=== PATIENT | male | born 1950 | race Caucasian/White ===

== ENCOUNTER → 2017-05-05 | Outpatient (CLI) | payer OTHER ==
[~2017-05-05] VITALS: Ht 170.2 cm; Wt 95.1 kg
[~2017-05-05] MED LIST: ASPIRIN325 PO; ATENOLOL 100MG100 MG PO; HYDROCODON-ACE1 EAC8 PO; PAROXETINE HCL20 MG PO; SIMVASTATIN5 MG PO; ZYRTEC10 M5 PO
--- NOTE | ~2017-05-05 | HPC ---
[facility] [address] [place] [address] PAIN MANAGEMENT CONSULTATION Name: JAILYN HOOD Room #: REG Ana Jang#: [id number] Admission: 05/05/17 Attend Phys: Colt Callejas DO Discharge: Date of : 49 Report #: [id number] THIS REPORT FOR: //name// CC: TONNY Reveles HISTORY OF PRESENT ILLNESS: The patient is a 66-year-old gentleman seen in consultation at the request of work comp for evaluation of pain, low back, buttock, and right leg. The patient has an extensive medical history, suffered a twisting, lifting injury in 2004 with acute "pop" and onset of pain, low back, right leg to foot. The patient was treated conservatively, ultimately progressing to L4, L5, S1 fusion on 12/09/2012. The patient notes that he had short-term relief following the procedure, but pain recurred. He is complaining primarily of pain at the base of his tailbone and his coccyx, describes as burning dysesthesia exacerbated with any weight on the tailbone i.e. sitting. Gets some relief lifting his torso with his arms such that his feet are off the floor. This affords only transient relief. He takes hydrocodone up to 2 a day or aspirin up to 9 a day with nominal efficacy. He notes pain is an 8-10 on a visual analog scale, not terribly opiate sensitive. He describes continuous, steady, constant, burning, aching, pulling, sharp, stabbing pain that significantly interferes with function. 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 He notes more incidentally right lumbar radicular pain and a burning dysesthesia in both feet. The patient denies any myelopathic symptoms including loss of proprioception, saddle anesthesia or bowel or bladder incontinence. The patient apparently had an MRI and a subsequent workup at [facility], most recently this past year. Again, no surgery was indicated at that time. REVIEW OF SYSTEMS: Complete review of systems was attached to the chart and gone over with the patient. He is , does not smoke or drink alcohol to excess. History of hypertension, treated with atenolol; dyslipidemia for which he takes simvastatin; chronic anxiety, currently on paroxetine and prior taken Xanax for nearly 10 years. SURGICAL HISTORY: Surgery includes the aforementioned lumbar fusion in 2012, right total hip arthroplasty in 2015 and ORIF of the right lower extremity in 1991 (1992?). The patient states he been retired since 2006. Rates his pain impact score 69/70. [address] [address] PAIN MANAGEMENT CONSULTATION Name: JAILYN HOOD Room #: REG FRITZ Jang#: [id number] Admission: 05/05/17 Attend Phys: Colt Callejas DO Discharge: Date of : 49 Report #: [id number] PHYSICAL EXAMINATION: This is a 5 feet 8 inches, 190 pounds gentleman, BMI is 32.8 kilograms per meter squared. Blood pressure is quite elevated at 197/105, pulse 74, respirations 16. He is alert and oriented to person, place and time, judged to be a reasonable historian. Pupils equal and reactive to light and accommodation. Extraocular muscles are intact. Cervical range of motion is full. Thyroid is unremarkable. Upper extremity strength is preserved. He does have poor dentition. Heart is regular and rhythmical without murmur. Lungs are clear to auscultation. Upper extremity strength again generally preserved, though resistance to triceps extension does exacerbate low back pain. The patient rises from chair using armrest, has an antalgic gait. Flexion is self-limited to 30 degrees, tender from about L4 down with exquisite tenderness over the sacrococcygeal area. Patellar and Achilles reflexes are preserved at 1/4. Lower extremity strength is symmetric at 4/5. Resistance to right hip flexion strength exacerbates low back pain. Passive rotation of the hips is limited, has pain radiating to the low back with all movement. Palpation over the low back causes "exquisite pain." Again, the patient is on low dose hydrocodone. I suggested membrane stabilizing agent, states he has been on gabapentin, though he is unsure of the dosage or time. He is not interested in medication stating "I have tried them all before." He states no medications have afforded any relief. I did convince the patient to try Lyrica, a little easier to titrate calcium channel membrane stabilizing agent. I gave him samples of both 50 and 75 mg tablets. We will gradually titrate to target dose of 125 mg. 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 I did, however, suggest that I was uncertain if a spinal cord stimulator would afford much relief for his specific pain i.e., pain at the base of the tailbone. The patient stated that he would rather be paralyzed from the waist down than have the current pain that he has. The patient seems to be suffering from fairly significant dramatic pain. It has affected his functional ability and his affect. I have taken the liberty of giving the patient samples for Lyrica to try a reasonable neuropathic agent. If, however, he fails this agent, I am of a mind that the downside of trialing a spinal cord stimulator while not insignificant, may be eclipsed by possible benefit. I did point out that my biggest concern with a spinal cord stimulator trial would be concern for infection in a gentleman with fusion hardware. Clearly infection could be catastrophic requiring explantation of the hardware. Nonetheless, infection is a very infrequent complication of spinal cord stimulator. Again, with high frequency stimulator, we may well be able to get back beltline, buttock and leg coverage. [facility] [address] [place] [address] PAIN MANAGEMENT CONSULTATION Name: SANAJAILYN Arias Room #: REG [facility] Suhail#: [id number] Admission: 05/05/17 Attend Phys: Colt Callejas DO Discharge: Date of : 49 Report #: [id number] Thank you for allowing me to participate in the patient's care. Initially I thought with the low dose opiate he is on, that he had not really been exposed to maximal medical therapy. He is describing however, neuropathic pain that typically is not well managed with opiate analgesics. He has widely eschewed escalation of this dose. We will see how he does with a therapeutic dose of neuropathic agent (Lyrica). I will keep you abreast of his progress. <ELECTRONICALLY SIGNED> By: Colt Callejas DO 05/07/17 1417 1617 1856 Colt Callejas DO /nt
[2017-05-05 13:06] VITALS: BP 197/105
== END ==
LOC: PAIN 07:06
DX: M54.5 Low back pain (principal); M79.604 Pain in right leg

== ENCOUNTER → 2017-05-26 | Outpatient (CLI) | payer OTHER ==
[~2017-05-26] VITALS: Ht 170.2 cm; Wt 94.8 kg
--- NOTE | ~2017-05-26 | HPC ---
[facility] [place] [address] PAIN MANAGEMENT CONSULTATION Name: JAILYN HOOD Room #: REG FRITZ Jang#: [id number] Admission: 05/26/17 Attend Phys: Colt Callejas DO Discharge: Date of : 49 Report #: [id number] THIS REPORT FOR: //name// CC: TONNY Callejas DATE OF SERVICE: 05/26/2017 ADDENDUM The patient appears to be an appropriate candidate for a spinal cord stimulator. I am comfortable moving forward without psychological evaluation as required by Medicare. Assuming his third alliance party payer does not require this diagnostic tool, I am happy to move forward with spinal cord stimulator in earliest possible date. I cannot discern any obvious psychological pathology or any signs of malingering, which would make him not a spinal cord stimulator candidate. <ELECTRONICALLY SIGNED> By: Colt Callejas DO 06/12/17 0938 1339 [id number] Colt Callejas DO /nt
--- NOTE | ~2017-05-26 | HPC ---
[facility] [place] [address] PAIN MANAGEMENT CONSULTATION Name: JAILYN HOOD Room #: REG Ana Jang#: [id number] Admission: 05/26/17 Attend Phys: Colt Callejas DO Discharge: Date of : 49 Report #: [id number] THIS REPORT FOR: //name// CC: TONNY Callejas The patient is a 66-year-old gentleman I was asked to see in consultation, 05/05/2017 for evaluation of pain, low back, coccyx, buttock and right leg. He was seen one time, 05/05/2017. The patient was complaining bitterly of pain stating "I would rather be paralyzed from the waist down than have my current pain." He had had a prior back surgery (fusion L4, L5, S1, 12/09/2012). The patient notes despite short-term relief, pain had become problematic at the tailbone, coccyx, burning dysesthesia with paresthesia going to the bilateral feet. He describes a sensation in his feet of feeling partially numb, burning into his toes. We had trialed Lyrica at last visit, samples titrated up to 125 mg (50 mg in the morning, 75 at night) with absolutely no change in symptoms. He currently rates his pain a 9 on VAS. Describes constant, sharp, steady, burning, aching, pulling, stabbing, tender pain. Again, primarily back, right buttock, tip of the coccyx and bilateral feet. Physical exam is otherwise unchanged. A 66-year-old gentleman, BMI 32.7 kilograms per meter squared. Blood pressure 160/97, pulse 65, respirations 14, room air oxygen saturation 95%. BMI is 32.7 kilograms per meter squared. Rises from the chair using armrest. Gait is modestly antalgic. Lumbar flexion is self-limited to about 20 degrees. Tender over the coccyx, low back. Lower extremity strength symmetric. Positive straight leg raise on the right, though strength is generally symmetric. Well-healed midline surgical scar compatible with prior history. ASSESSMENT: Lumbar radiculopathy status post decompressive laminectomy, status post right total hip arthroplasty, chronic axial back pain. The patient today does note one change from our prior consult, he told me at that time he was taking up to 2 hydrocodone a day. Reviewing medical records, it does appear he is getting 180 hydrocodone 10/325 every 30 days from his primary treating physician. ASSESSMENT: Symptomatic lumbar radiculopathy, status post decompressive laminectomy fusion in November 2012, ongoing axial back pain, coccyx pain, lumbar radiculopathy. RECOMMENDATION: We will have the patient wean off of Lyrica, simply drop to [address] [address] PAIN MANAGEMENT CONSULTATION Name: JAILYN HOOD Room #: REG CL Suhail#: [id number] Admission: 05/26/17 Attend Phys: Colt Callejas DO Discharge: Date of : 48 Report #: [id number] mg. He has about 4 of these tablets left, and he has about three 50 mg tablets left, which I will have him take when he finishes the 75 mg tablets. Hence weaning off of Lyrica in about 7-8 days. Continue narcotic analgesics from prior treating physician. The patient did ask about an intrathecal pump. I pointed out that it is merely another way of administering medications, while somewhat more efficient directing medications into the cerebrospinal fluid, it really does not change the nature of the medications. He is currently taking 50-60 mg of morphine equivalence (4-6 hydrocodone 10/325 daily) per day with nominal efficacy. His pain is clearly not terribly opiate sensitive, hence infusing an opiate analgesic into the cerebral spinal fluid is not likely to afford better relief than he has currently. The patient "asked about spinal cord stimulator, this therapeutic intervention had been brought out by another physician. He does meet the diagnostic criteria, having failed back surgery with pain interfering with function, not amenable to current therapy including opiate analgesics membrane stabilizing agents." Today, I did discuss with the patient that we would be willing to trial high frequency spinal cord stimulator. Our specific point would be improved functional status. While we would like to get subjective improvement of pain, I told him that we will likely never make him "pain free." I would try to simply improve his functional status. Currently, he tells me he can sit for about 5 minutes and walk for 10-15 minutes. Otherwise, pain becomes quite problematic. States if he stands or lies down or changes position, pain is somewhat improved. I did give the patient print and video literature regarding a high frequency spinal cord stimulator (Nevro). If this affords good relief with trial, we will refer to Neurosurgery for implantation of same. If, however, the patient states that he has ongoing pain and functional status is not improved, we can consider spinal cord stimulator therapy as having been trialed and lacking efficacy, we can somewhat take that therapeutic option "off the table." Thanks for allowing me to participate in the patient's care. We will plan on moving forward with spinal cord stimulator trial at earliest possible date. ADDENDUM The patient appears to be an appropriate candidate for a spinal cord stimulator. I am comfortable moving forward without psychological evaluation as required by Medicare. Assuming his third green party payer does not require this diagnostic tool, I am happy to move forward with spinal cord stimulator in earliest possible [facility] [address] [place] [address] PAIN MANAGEMENT CONSULTATION Name: JAILYN HOOD Room #: HELIO Jang#: [id number] Admission: 05/26/17 Attend Phys: Colt Callejas DO Discharge: Date of : 48 Report #: [id number] date. I cannot discern any obvious psychological pathology or any signs of malingering, which would make him not a spinal cord stimulator candidate. <ELECTRONICALLY SIGNED> By: Colt Callejas DO 06/12/17 0928 1347 [id number] Colt Callejas DO /nt
[2017-05-26 12:55] VITALS: BP 162/97
== END ==
LOC: PAIN 07:39
DX: M54.16 Radiculopathy, lumbar region (principal); M79.1 Myalgia; M53.3 Sacrococcygeal disorders, not elsewhere classified

== ENCOUNTER → 2017-07-10 | Outpatient (CLI) | payer OTHER ==
[~2017-07-10] VITALS: Ht 170.2 cm; Wt 93.9 kg
--- NOTE | ~2017-07-10 | HPC ---
[facility] [place] [address] PAIN MANAGEMENT CONSULTATION Name: CARLOCONNIEJAILYN Hugo Room #: REG Ana Daniels.#: [id number] Admission: 07/10/17 Attend Phys: Colt Callejas DO Discharge: Date of : 49 Report #: [id number] THIS REPORT FOR: //name// CC: TONNY Callejas DATE OF SERVICE: 07/10/2017 The patient is a 66-year-old gentleman being seen for chronic lumbar radiculopathy, status post decompressive laminectomy with axial back and lumbar radicular pain. Last seen on 05/26/2017. We elected to proceed with spinal cord stimulator trial. Presents to Pain Clinic today for same. Today, we discussed risks and benefits to include paralysis, infection, spinal cord trauma. He wished to proceed. IV was established in the right arm. The patient was given 1 g of Ancef, taken to the fluoroscopy suite, placed in prone position with appropriate abdominal bolstering. After wide surgical prep and drape, skin wheal with Xylocaine was raised. A stab incision with a #11 scalpel was made. A 14-gauge epidural Tuohy needle was placed from right paramedian approach, entering the posterior spinous ligament at T12-L1. Stylet was removed and saline filled glass syringe was attached with continuous plunger pressure and biplanar fluoroscopy. The needle was advanced in the epidural space. Unable to easily advance the spinal cord stimulating lead past about T11. We elected to abort that trial. Needle and lead were removed. Second skin with Xylocaine was raised from a right paramedian approach and again, a #11 scalpel incision was made and a 14-gauge epidural Tuohy needle was inserted from a right paramedian approach entering the posterior spinous process at T11-T12. Again, stylet was removed and saline filled glass syringe was attached. Using continuous plunger pressure and biplanar fluoroscopy, this needle was easily advanced into the epidural space with good loss to resistance. Lead was then deployed midline to the top of T7. Procedure was repeated from left paramedian approach, again entering at T11-T12. Second lead was placed at the top of T8. With fluoroscopic guidance, the stylets and needles were removed. The tips remained intact. Leads were secured using mastic and Steri-Strips. Wide bolster dressing was accomplished. The patient was allowed to ambulate to recovery and monitored for an appropriate period of time, discharged in good and stable condition. He has a followup appointment in 1 week. 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 He is to report to the ER if he has any issues with increased temperature, weakness, paralysis or increased pain. <ELECTRONICALLY SIGNED> By: Colt Callejas DO 07/14/17 0822 1425 [id number] Colt Callejas DO /nt
[2017-07-10 12:20] VITALS: BP 191/99
== END | disposition home or self-care (01) ==
LOC: PAIN 07-07 13:13
DX: Z46.2 Encounter for fitting and adjustment of other devices related to nervous system and special senses (principal); M54.16 Radiculopathy, lumbar region; G89.29 Other chronic pain; Z98.890 Other specified postprocedural states; Z79.891 Long term (current) use of opiate analgesic; Z88.8 Allergy status to other drugs, medicaments and biological substances; Z79.82 Long term (current) use of aspirin; Z79.899 Other long term (current) drug therapy

== ENCOUNTER → 2017-07-17 | Outpatient (CLI) | payer OTHER ==
[~2017-07-17] VITALS: Ht 152.4 cm; Wt 95.3 kg
--- NOTE | ~2017-07-17 | HPC ---
[facility] [address] [place] [address] PAIN MANAGEMENT CONSULTATION Name: SANAJAILYN Arias Room #: REG FRITZ Jang#: [id number] Admission: 07/17/17 Attend Phys: Colt Callejas DO Discharge: Date of : 49 Report #: [id number] THIS REPORT FOR: //name// CC: TONNY Callejas The patient is a pleasant 66-year-old gentleman initially seen in consultation 05/05/2017. Diagnosed with ongoing axial back pain, lumbar radicular component (right) with bipedal neuropathy. He had pain that significantly impacted functional status. Taking hydrocodone up to 2 a day with nominal efficacy. Was loathe to use higher dose opiates. Having failed back surgery with classic ongoing radicular symptoms, we talked about therapeutic options. We started a membrane stabilizing agent (Lyrica). In followup 05/26/2017, the patient noted he had titrated Lyrica up to 125 mg a day with absolutely no change in symptoms. We elected to move forward with spinal cord stimulator trial. This was accomplished 07/10/2017. The patient returns to pain clinic today noting dramatic improvement in baseline function. States current pain is a 3 on a VAS. States he can function better, walk better and get in and out of his car much easier. He is very pleased with incremental improvement, in fact, rating his pain 70% improved. Today he was taken to the fluoroscopy suite. The leads were evaluated. Top of one lead is at the top of T8, second lead was at T9. Both leads were removed. Insertion site looked unremarkable. Area was cleansed. Band-Aid was applied. The patient was discharged in good and stable condition. I told the patient we would have back surgeon reach out to him regarding appointment for consultation regarding implantation of a nurse leader. Again, the patient had a Nevro high frequency percutaneous spinal cord stimulator trial. I have reached out to Adebayo Vaelro Esq regarding any preference for surgeon on the work comp panel for implantation. Discharged in stable condition. <ELECTRONICALLY SIGNED> By: Colt Callejas DO 07/19/17 0954 [id number] 1401 Colt Callejas DO /nt
[2017-07-17 11:09] VITALS: BP 177/85
== END ==
LOC: PAIN 07:02
DX: M54.16 Radiculopathy, lumbar region (principal); G62.9 Polyneuropathy, unspecified